=== PATIENT | female | born 1960 | race Caucasian/White ===

== ENCOUNTER 2017-06-02 13:16 | Emergency (ER) | payer MEDICAID ==
[~2017-06-02] VITALS: Ht 154.9 cm; Wt 81.6 kg
--- OUTSIDE RECORDS SUMMARY | 2017-06-02 13:23 | External Medical Summary Rpt ---
Demographics Preferred Language Nepali Marital Status Unknown Christian Affiliation Unknown Race Unknown Ethnic Group Unknown Author Author KARINA Address Unknown Phone Immunization No patient found.
--- OUTSIDE RECORDS SUMMARY | 2017-06-02 13:23 | External Medical Summary Rpt ---
Author Author KARINA Address Unknown Phone [email or web address] Purpose Continuity of Care Document - through 2016
--- OUTSIDE RECORDS SUMMARY | 2017-06-02 13:23 | External Medical Summary Rpt ---
Author Author KARINA Address Unknown Phone [email or web address] Purpose Continuity of Care Document - through 2016
--- OUTSIDE RECORDS SUMMARY | 2017-06-02 13:23 | External Medical Summary Rpt ---
Author Author [employer] Organization [employer] Address Unknown Phone Unavailable Purpose Continuity of Care Document - through 2016
--- OUTSIDE RECORDS SUMMARY | 2017-06-02 13:23 | External Medical Summary Rpt ---
Demographics Preferred Language Yakut Marital Status Unknown Orthodox Affiliation Unknown Race Unknown Ethnic Group Unknown Author Author KARINA Address Unknown Phone Immunization No patient found.
[2017-06-02] MEDS ORDERED: VITAMIN E 400400 IU PO (13:28)
[2017-06-02] MEDS ORDERED: ESTRACE0.5 MG OR (13:28)
[2017-06-02] MEDS ORDERED: VENLAFAXINE HCL50 MG PO (13:29)
[2017-06-02] MEDS ORDERED: HYDROCHLOROTH12.5 M1 PO (13:29)
[2017-06-02] MEDS ORDERED: GABAPENTIN 600600 MG PO (13:29)
[2017-06-02] MEDS ORDERED: METFORMIN1000 MG PO (13:32)
[2017-06-02] MEDS ORDERED: BACTROBAN2% TP (14:08)
--- NOTE | 2017-06-02 14:09 | Emergency Room Report ---
History of Present Illness Time Seen by MD Ceballos Presenting Problem in Triage Pt arrived:Walked Presenting Problem:PT NOTED TO HAVE FISHING HOOK TO LEFT FOREARM. 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 N Clinical Suspician of Infection? N Mental Status: 1 - Regular (Normal Baseline) Sepsis Risk:Low Sepsis Risk Have you (or family members/close friends) recently traveled outside the [place]? N If Yes, where/when: Have you had exposure to infectious disease within the past month? N TB? Other? Specify: Source patient, RN notes reviewed Exam Limitations no limitations Comment Pt got a fishhook embedded in her left forearm around 11:30 AM.. No UTD on tetanus Cardiac Chest Pain Chest pain indicative of cardiac No ALLERGIES Coded Allergies: atorvastatin (From LIPITOR) (06/02/17) Home Medications Reported Medications Vitamin E (Vitamin E 400 UNITS) 400 IUNITS PO DAILY Estradiol (Estrace) 0.5 MG OR DAILY Gabapentin (Gabapentin 600MG) 600 MG PO Q8 Hydrochlorothiazide (Hydrochlorothiazide 12.5MG) 12.5 MG PO DAILY VENLAFAXINE HCL (Effexor 50MG (GEQ)) 50 MG PO DAILY METFORMIN HCL (Metformin) 1,000 MG PO DAILY History Medical History General CAD? No Angina: No [place]: No Hypertension? Yes Hyperlipidemia? No CHF? No DVT? No PE? No COPD? No Asthma? No Anemia? No GERD? No Gastric ulcers? No GI Bleed? No Hernia? No Thyroid Problems? No Hypothyroidism? No CVA? No Seizures? No Diabetes? Yes Insulin Dependent: No Insulin Pump: No Home FSBS? No Renal Insuffiency? No End Stage Renal Disease? No UTI? No Stones? No BPH? No GB Disease: No Nephritic Syndrome? No Asplenia? No Hepatitis? No Sickle Cell Disease? No Arthritis? No Migraines? No Cataracts? No Glaucoma? No MRSA? No HIV? No TB? No Anxiety? No Depression? No Cancer? No More? 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 Cardiovascular normal exam, regular rate/rhythm Neurologic alert, chief of safety and protection II-XII nml as tested, normal exam Medical Decision Making LABS/Meds/Orders Pt receiving controlled substance in ED? No Results/Orders Current Medication Orders Sig/Tien Start time Last Medication Dose Route Stop Time Status Admin Diphtheria/Pertussis/ 0 .STK-MED ONE 06/02 1406 DC Tetanus Vacc IM Lidocaine HCl 5 ML ONCE ONE 06/02 1400 DC 06/02 IJ 06/02 1401 1352 Lidocaine HCl 0 .STK-MED ONE 06/02 1350 DC IJ Diphtheria/Pertussis/ 0.5 ML ONCE ONE 06/02 1345 DC Tetanus Vacc IM 06/02 1346 Departure Departure Time of Disposition 1406 Disposition DC Home or Self Care(routine) Clinical Impression Primary Impression: Foreign body in left forearm Qualifiers: Encounter type: initial encounter Qualified Code: S50.852A - Superficial foreign body of left forearm, initial encounter Condition STABLE Additional Instructions Keep wound clean and return to the ED or follouwp with PCP if any infection occurs Discharge Counseling Counseled pt/family regarding diagnosis, medications/RX, home care, follow up needs Prescriptions Current Visit Scripts MUPIROCIN 2% (Bactroban Oint) 1 GM TP DAILY #1 TUBE ED Critical Care Critical Care No If Critical Care minutes are documented, the time involved in the performance of seperately reportable procedures was not counted toward critical care time documented. I directly delivered medical care to this critically ill and/or injured patient. Timely evaluation and treatment was necessary to address the significant organ system(s) dysfunction present in this patient. at 1409
--- NOTE | 2017-06-02 14:09 | Emergency Room Report ---
History of Present Illness Time Seen by MD Ceballos Presenting Problem in Triage Pt arrived:Walked Presenting Problem:PT NOTED TO HAVE FISHING HOOK TO LEFT FOREARM. 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 N Clinical Suspician of Infection? N Mental Status: 1 - Regular (Normal Baseline) Sepsis Risk:Low Sepsis Risk Have you (or family members/close friends) recently traveled outside the [place]? N If Yes, where/when: Have you had exposure to infectious disease within the past month? N TB? Other? Specify: Source patient, RN notes reviewed Exam Limitations no limitations Comment Pt got a fishhook embedded in her left forearm around 11:30 AM.. No UTD on tetanus Cardiac Chest Pain Chest pain indicative of cardiac No ALLERGIES Coded Allergies: atorvastatin (From LIPITOR) (06/02/17) Home Medications Reported Medications Vitamin E (Vitamin E 400 UNITS) 400 IUNITS PO DAILY Estradiol (Estrace) 0.5 MG OR DAILY Gabapentin (Gabapentin 600MG) 600 MG PO Q8 Hydrochlorothiazide (Hydrochlorothiazide 12.5MG) 12.5 MG PO DAILY VENLAFAXINE HCL (Effexor 50MG (GEQ)) 50 MG PO DAILY METFORMIN HCL (Metformin) 1,000 MG PO DAILY History Medical History General CAD? No Angina: No [place]: No Hypertension? Yes Hyperlipidemia? No CHF? No DVT? No PE? No COPD? No Asthma? No Anemia? No GERD? No Gastric ulcers? No GI Bleed? No Hernia? No Thyroid Problems? No Hypothyroidism? No CVA? No Seizures? No Diabetes? Yes Insulin Dependent: No Insulin Pump: No Home FSBS? No Renal Insuffiency? No End Stage Renal Disease? No UTI? No Stones? No BPH? No GB Disease: No Nephritic Syndrome? No Asplenia? No Hepatitis? No Sickle Cell Disease? No Arthritis? No Migraines? No Cataracts? No Glaucoma? No MRSA? No HIV? No TB? No Anxiety? No Depression? No Cancer? No More? 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 No Results/Orders Current Medication Orders Sig/Tien Start time Last Medication Dose Route Stop Time Status Admin Diphtheria/Pertussis/ 0 .STK-MED ONE 06/02 1406 DC Tetanus Vacc IM Lidocaine HCl 5 ML ONCE ONE 06/02 1400 DC 06/02 IJ 06/02 1401 1352 Lidocaine HCl 0 .STK-MED ONE 06/02 1350 DC IJ Diphtheria/Pertussis/ 0.5 ML ONCE ONE 06/02 1345 DC Tetanus Vacc IM 06/02 1346 Departure Departure Time of Disposition 1406 Disposition DC Home or Self Care(routine) Clinical Impression Primary Impression: Foreign body in left forearm Qualifiers: Encounter type: initial encounter Qualified Code: S50.852A - Superficial foreign body of left forearm, initial encounter Condition STABLE Additional Instructions Keep wound clean and return to the ED or follouwp with PCP if any infection occurs Discharge Counseling Counseled pt/family regarding diagnosis, medications/RX, home care, follow up needs Prescriptions Current Visit Scripts MUPIROCIN 2% (Bactroban Oint) 1 GM TP DAILY #1 TUBE ED Critical Care Critical Care No If Critical Care minutes are documented, the time involved in the performance of seperately reportable procedures was not counted toward critical care time documented. I directly delivered medical care to this critically ill and/or injured patient. Timely evaluation and treatment was necessary to address the significant organ system(s) dysfunction present in this patient. at 1409
[2017-06-02 14:22] VITALS: BP 127/85
== END 2017-06-02 14:22 | disposition home or self-care (01) ==
LOC: UTC 13:16 → ER 13:22 → UTC 13:22 → ER 14:22
PROC: 0HCEXZZ Extirpation of Matter from Left Lower Arm Skin, External Approach (ICD-10-PCS; principal; 2017-06-02)
DX: S50.852A Superficial foreign body of left forearm, initial encounter (principal); W22.8XXA Striking against or struck by other objects, initial encounter; Y92.89 Other specified places as the place of occurrence of the external cause